=== PATIENT | male | born 1990 | race Caucasian/White ===

== ENCOUNTER 2022-07-17 22:26 | Emergency (ER) | payer BC, SELFPAY ==
[2022-07-17 22:32] VITALS: BP 135/77; PULSE 78; RESP 16; TEMP 36.8; O2SAT 98
--- NOTE | 2022-07-17 23:01 | ED.GENADULT ---
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 He felt sudden pain in his left shoulder and has had pain with any movement of the shoulder since that time. He has not taken anything for pain. He has a history of a shoulder dislocation and what sounds like several subluxations but this felt different. He does not believe he will be able to work tomorrow as he does a lot of overhead work on his job at [employer]. Related Data Home Medications Medication Instructions Recorded Confirmed levothyroxine 150 mcg tablet mcg 07/17/22 Allergies Allergy/AdvReac Type Severity Reaction Status Date / Time No Known Drug Allergies Allergy Verified 07/17/22 22:37 Review of Systems Narrative: Review of systems is outlined above otherwise noted to be negative. PFSH PFS Social History Smoking Status: Current every day smoker What tobacco products do you use: cigarettes Second hand tobacco smoke exposure: No How often do you have a drink containing alcohol: never How often do you have six or more drinks on one occasion: Never AUDIT-C Alcohol total score: 0 Non-prescribed substance use: marijuana (any form) service: No Exam Narrative: Exam Narrative: Vitals noted. Examination is limited to the left upper extremity. He has no tenderness along the clavicle or AC joint. Does have pain with abduction and external rotation actively. Passively I am able to put him through full range of motion with just some pain at the extreme. Good strength and sensation at the elbow and wrist. Full range of motion of the cervical spine without pain. Const: Vital Signs, click to edit/add: Vital Signs - 24 hr 07/17/22 22:32 07/17/22 23:13 Temperature 98.3 F Pulse Rate [Right Pulse Oximeter] 78 80 Respiratory Rate 16 16 Blood Pressure [Ri ght Upper Arm] 135/77 132/72 Pulse Oximetry 98 99 Oxygen Delivery Me thod Room Air Room Air Course Course Hospital Course: Patient was seen and examined. Toradol 60 mg IM is given. I did agree to give him a work note for tomorrow. Vital Signs Vital signs: Initial Vital Signs Temperature 98.3 F 07/17/22 22:32 Temperature Source Temporal Artery Scan 07/17/22 22:32 Pulse Rate 78 07/17/22 22:32 Pulse Rhythm 07/17/22 22:32 Respiratory Rate 16 07/17/22 22:32 Blood Pressure 135/77 07/17/22 22:32 Blood Pressure Mean 96 07/17/22 22:32 Blood Pressure Position Semi-Fowlers 07/17/22 22:32 Pulse Oximetry 98 07/17/22 22:32 Oxygen Delivery Method 07/17/22 22:32 Vital Signs Temperature 98.3 F 07/17/22 22:32 Pulse Rate 78 07/17/22 22:32 Respiratory Rate 16 07/17/22 22:32 Blood Pressure 135/77 07/17/22 22:32 Pulse Oximetry 98 07/17/22 22:32 Oxygen Delivery Method 07/17/22 22:32 Temperature 98.3 F 07/17/22 22:32 Pulse Rate 80 07/17/22 23:13 Respiratory Rate 16 07/17/22 23:13 Blood Pressure 132/72 07/17/22 23:13 Pulse Oximetry 99 07/17/22 23:13 Oxygen Delivery Method 07/17/22 23:13 Discharge Plan Discharge Clinical Impression: Left shoulder strain Patient Disposition: Home, Self-Care Condition: Improved Additional Instructions: Ice, ibuprofen 800 mg 3 times a day, relative rest. Follow-up if worsening or not improving. Prescriptions: No Action levothyroxine 150 mcg tablet Follow Up/Referrals: Jayesh Bowles MD [Primary Care Provider] - Stand Alone Forms: [facility] Info Instructions
[2022-07-17] MEDS: KETOROLAC 30 MG/ML inj 60 MG IM (23:07)
--- OUTSIDE RECORDS SUMMARY | 2022-07-17 23:09 | XMS_ITS | Clinical Summary ---
:1990 Author Organization [facility] [place] [address] Care Team Providers Name Role Phone Jayesh Bowles MD Primary Care Provider [phone] Allergies Active Allergy Reactions Severity Noted Date Comments Methimazole Hives 08/22/2010 Medications Medication Sig Dispensed Refills Start Date End Date Status levothyroxine Take 1 Tablet 90 tablet. 3 11/20/2021 Active (SYNTHROID) 150 mcg (150 mcg) by tabletIndications: mouth once Hypothyroidism following daily. radioiodine therapy Active Problems Problem Noted Date History of Graves' disease 01/08/2019 Overview: Dx 05/2010 History of methimazole treatment Hypothyroidism following radioiodine therapy 5 Resolved Problems Problem Noted Date Resolved Date Graves' disease 07/13/2010 01/08/2019 Hyperthyroidism 05/26/2010 01/08/2019 Immunizations Name Administration Dates Next Due Tdap 12/15/2018 Family History Medical History Relation Name Comments Good Health Father Good Health Mother Good Health Sister Relation Name Status Comments Father Mother Sister Social History Tobacco Use Types Packs/Day Years Used Date Current Every Day Smoker Cigarettes 1.5 Smokeless Tobacco: Never Used Tobacco Cessation: Ready to Quit: No; Co unseling Given: Yes Alcohol Use Standard Drinks/Week Comments No 0 (1 standard drink = 0.6 oz pure alcoho l) Sex Assigned at Date Recorded Not on file Obstetrics History Last Filed Vital Signs Vital Sign Reading Time Taken Comments Blood Pressure 128/70 12/28/2021 10:46 AM CDT Pulse 82 12/28/2021 10:46 AM CDT Temperature 36.7 ??C (98.1 ??F) 02/02/2020 2:34 PM CDT Respiratory Rate 20 12/15/2020 1:56 PM CDT Oxygen Saturation 100% 12/28/2021 10:46 AM CDT Inhaled Oxygen Concentration - - Weight 78.9 kg (174 lb) 12/28/2021 10:46 AM CDT Height 185.4 cm (6' 1) 12/28/2021 10:46 AM CDT Body Mass Index 22.96 12/28/2021 10:46 AM CDT Plan of Treatment Health Maintenance Due Date Last Done Comments COVID-19 vaccine series (#1) 01/01/1993 Pneumococcal series for age 19-64 1998 (1 - PCV) HIV for age 15-65 2007 Hepatitis C screening for age 1107/04/2010 18-79 Influenza for age 9-49 04/26/2022 Depression screening for age 12+ 11/21/2022 11/21/2021, , 02/03/2020, Additional history exists BMI (ht and wt on same day) for 12/28/2022 12/28/2021, 10/25, age 18+ 02/02/2020, Additional history exists Tetanus booster 12/15/2028 12/15/2018 Tdap Completed 12/15/2018 Results Not on filefrom Last 3 Months Insurance Payer Benefit Plan / Subscriber ID Effective Dates Phone Addre ss Type Group [employer] [place] [employer] [id number] 2019-Presen [address] [address] [facility] [place] [address] Care Teams Print Journalist Relationship Specialty Start Date End Date Jayesh Bowles MD PCP - General 05/25/10 [address] [place], [place] [id number]
[2022-07-17 23:13] VITALS: BP 132/72; PULSE 80; RESP 16; O2SAT 99
== END 2022-07-17 23:14 | disposition home or self-care (01) ==
LOC: ED 23:07
PROVIDERS: Emergency Provider Family Medicine; PCP Family Medicine
DX: S46.912A Strain of unspecified muscle, fascia and tendon at shoulder and upper arm level, left arm, initial encounter (principal); X50.0XXA Overexertion from strenuous movement or load, initial encounter; Y93.E9 Activity, other interior property and clothing maintenance; Y92.019 Unspecified place in single-family (private) house as the place of occurrence of the external cause; Y99.8 Other external cause status
CPT/HCPCS: 96372; 99281; 99282; J1885

== ENCOUNTER 2023-03-12 20:05 | Emergency (ER) | payer BC, SELFPAY ==
[2023-03-12 20:17] VITALS: BP 125/76; PULSE 77; RESP 20; TEMP 37.3; O2SAT 100; BMI 22.4
--- NOTE | 2023-03-12 20:17 | ED.ABDPAIN ---
HPI - Abdominal Pain General Time Seen by Provider: 20:17 Date Seen: 03/12/23 Chief Complaint: Abdominal Pain Stated Complaint: L side abdominal pain Time Seen by Provider: 03/12/23 20:08 Source: patient, RN notes reviewed and old records reviewed Mode of arrival: ambulatory History of Present Illness HPI narrative: 32-year-old male who comes in today with abdominal pain. He has noted left upper quadrant abdominal pain since yesterday. Worse with some movements. No chest pain, pain does not get worse with breathing, no shortness of breath. No nausea, vomiting, diarrhea. No change in pain with eating or drinking. No fevers. Took tramadol for this but no other medications. Patient does smoke cigarettes. Related Data Home Medications Medication Instructions Recorded Confirmed levothyroxine 150 mcg tablet mcg 07/17/22 Allergies Allergy/AdvReac Type Severity Reaction Status Date / Time No Known Drug Allergies Allergy Verified 07/17/22 22:37 Review of Systems Status of ROS Reports: 10 or more systems reviewed and unremarkable except as noted in History and below PFSH PFSH Social History Smoking Status: Current every day smoker What tobacco products do you use: cigarettes Smoking packs per day: 1 Smoking cigarettes per day: 20.0 Years smoked: 16 Smoking pack-years: 16.00 Do you use any of these nicotine containing products: None Second hand tobacco smoke exposure: No How often do you have a drink containing alcohol: 2-4 times a month How often do you have six or more drinks on one occasion: Never AUDIT-C Alcohol total score: 2 Non-prescribed substance use: marijuana (any form) service: No Exam Narrative: Exam Narrative: General: Well-developed and well-nourished, no acute distress Head: Atraumatic and normocephalic Eyes: Pupils are equal reactive, extraocular motions intact, conjunctiva clear ENT: External nose and ears are normal, posterior pharynx without erythema or exudate Neck: No midline cervical tenderness, full spontaneous range of motion the neck, trachea midline, no adenopathy Heart: Regular rate and rhythm no murmurs or thrills Lungs: Clear to auscultation bilaterally without wheezes or crackles Abdomen: Soft, left upper quadrant tenderness along the sternal border and also some tenderness of the floating ribs, Carnett positive, nondistended with active bowel sounds Musculoskeletal: No tenderness, deformity, or edema Neurologic: Awake, alert, and oriented x3, no gross focal neurologic deficits, cranial nerves intact as tested Psych: Mood and affect are appropriate Skin: No rashes Const: Vital Signs, click to edit/add: Vital Signs - 24 hr 03/12/23 20:17 03/12/23 21:39 Temperature 99.2 F 98.5 F Pulse Rate [Pulse Oximeter] 77 57 L Respiratory Rate 20 18 Blood Pressure [Ri ght Upper Arm] 125/76 126/82 Pulse Oximetry 100 100 Oxygen Delivery Me thod Room Air Room Air Course Course Hospital Course: Patient seen examined, prior records reviewed. Patient presents with left upper quadrant and lower chest pain which is positional and reproducible, positive Carnett sign. Symptoms are most likely from musculoskeletal or abdominal wall source. Labs ordered to evaluate for other source of pain, Toradol ordered, consider CT scan of the abdomen depending on lab results. Consider D-dimer or CT PE study No pleuritic pain, hypoxia, tachycardia, low risk by Wells criteria and PERC negative. Reevaluation(s) Time of Reevaluation #1: 21:42 Reevaluation #1: Labs independently interpreted by me with reassuring CBC, normal basic metabolic panel, normal hepatic, normal lipase. Urinalysis is negative. Based on exam and lab testing today, symptoms are most likely from musculoskeletal pain. Patient did take Tylenol or ibuprofen for this. Vital Signs Vital signs: Initial Vital Signs Temperature 99.2 F 03/12/23 20:17 Temperature Source Temporal Artery Scan 03/12/23 20:17 Pulse Rate 77 03/12/23 20:17 Pulse Rhythm Regular 03/12/23 20:17 Respiratory Rate 20 03/12/23 20:17 Blood Pressure 125/76 03/12/23 20:17 Blood Pressure Mean 92 03/12/23 20:17 Blood Pressure Position Supine 03/12/23 20:17 Pulse Oximetry 100 03/12/23 20:17 Oxygen Delivery Method Room Air 03/12/23 20:17 Vital Signs Temperature 99.2 F 03/12/23 20:17 Pulse Rate 77 03/12/23 20:17 Respiratory Rate 20 03/12/23 20:17 Blood Pressure 125/76 03/12/23 20:17 Pulse Oximetry 100 03/12/23 20:17 Oxygen Delivery Method Room Air 03/12/23 20:17 Temperature 98.5 F 03/12/23 21:39 Pulse Rate 57 L 03/12/23 21:39 Respiratory Rate 18 03/12/23 21:39 Blood Pressure 126/82 03/12/23 21:39 Pulse Oximetry 100 03/12/23 21:39 Oxygen Delivery Method Room Air 03/12/23 21:39 MDM - Abdominal Pain Lab Data Labs: Lab Results 03/12/23 03/12/23 Range/Units 20:35 20:50 WBC 8.37 (4.50-11.00) K/uL RBC 5.35 (4.30-5.90) m/uL Hgb 15.8 (13.5-17.5) gm/dL Hct 46.8 (37.0-53.0) % MCV 88 (80-100) fL MCH 30 (26-34) pg MCHC 34 (32-36) gm/dL RDW Coeff of Vasquez 13.6 (11.5-15.5) % Plt Count 234 (140-440) K/uL Neut % (Auto) 74.3 H (42.0-72.0) % Lymph % (Auto) 16.8 L (20-44) % [place] % (Auto) 7.6 (0.0-11.0) % Eos % (Auto) 1.1 (0.0-7.0) % Baso % (Auto) 0.1 (0.0-3.0) % Neut # (Auto) 6.20 (1.7-7.0) K/uL Lymph # (Auto) 1.40 (0.90-2.90) K/uL [place] # (Auto) 0.60 (0.00-0.90) K/UL Eos # (Auto) 0.09 (0.00-0.50) K/uL Baso # (Auto) 0.01 (0.00-0.30) K/uL Abs Immat Gran (auto) 0.01 (0.00-0.30) K/uL Imm/Tot Granulo (auto) 0.1 % Sodium 139 (135-149) mmol/L Potassium 3.4 L (3.6-5.1) mmol/L Chloride 103 (96-114) mmol/L Carbon Dioxide 27 (20-32) mmol/L BUN 9 (5-24) mg/dL Creatinine 1.2 (0.5-1.5) mg/dL Estimated Creat Clear 98.17 Estimated GFR 83 ml/min Glucose 97 (60-115) mg/dL Calcium 9.1 (8.4-10.6) mg/dL Total Bilirubin 0.7 (0.1-1.5) mg/dL Direct Bilirubin 0.1 (0.0-0.5) mg/dL AST 31 (12-35) U/L ALT 24 (4-50) U/L Alkaline Phosphatase 43 (40-150) U/L Total Protein 7.5 (6.0-8.3) g/dL Albumin 4.9 (3.3-5.0) g/dL Lipase 56 (23-300) U/L Urine Color Yellow (Yellow) Urine Appearance Clear (Clear) Urine pH 6.0 (5.0-8.5) Ur Specific [place] <= 1.005 (1.000-1.030) Urine Protein Negative (Negative) Urine Glucose (UA) Negative (Negative) Urine Ketones Negative (Negative) Urine Blood Negative (Negative) Urine Nitrite Negative (Negative) Urine Bilirubin Negative (Negative) Urine Urobilinogen 0.2 (0.2-1.0) Ur Leukocyte Esterase Negative (Negative) Discharge Plan Discharge Clinical Impression: Abdominal wall pain Patient Disposition: Home w/ Parent or Adult Condition: Stable Instructions: Abdominal Pain (ED) Additional Instructions: Tylenol or ibuprofen as needed. Activity as tolerated. Diet as desired. Activity Level: Activity as Tolerated Prescriptions: No Action levothyroxine 150 mcg tablet Follow Up/Referrals: Jayesh Bowles MD [Primary Care Provider] - Stand Alone Forms: [employer] Info Instructions
[2023-03-12] MEDS: 0.9 % SODIUM CHLORIDE 1000 ml 1,000 ML IV (20:43)
[2023-03-12] MEDS: KETOROLAC 15 MG/ML inj IVP (20:45)
[2023-03-12 20:47] LABS: Basophils Absolute Auto 0.01 K/uL (0.00-0.30); Basophils Percent Auto 0.1 % (0.0-3.0); Eosinophils Absolute Auto 0.09 K/uL (0.00-0.50); Eosinophils Percent Auto 1.1 % (0.0-7.0); Hematocrit 46.8 % (37.0-53.0); Hemoglobin* 15.8 gm/dL (13.5-17.5); Immature Granulocytes Abs Auto 0.01 K/uL (0.00-0.30); Immature Granulocytes Pct Auto 0.1 %; Lymphocytes Percent Auto 16.8 % (20-44); Mean Corpuscular HGB Conc 34 gm/dL (32-36); Mean Corpuscular Hemoglobin 30 pg (26-34); Mean Corpuscular Volume 88 fL (80-100); Monocytes Percent Auto 7.6 % (0.0-11.0); Neutrophils Percent Auto 74.3 % (42.0-72.0); Platelet Count* 234 K/uL (140-440); RDW Coefficient of Variation % 13.6 % (11.5-15.5); Red Blood Count 5.35 m/uL (4.30-5.90); White Blood Count* 8.37 K/uL (4.50-11.00)
[2023-03-12 20:51] LABS: Slide Review Reflex No
[2023-03-12 20:57] LABS: Albumin* 4.9 g/dL (3.3-5.0); Chloride* 103 mmol/L (96-114); Sodium* 139 mmol/L (135-149)
[2023-03-12 20:58] LABS: Potassium* 3.4 mmol/L (3.6-5.1)
[2023-03-12 21:00] LABS: Alkaline Phosphatase* 43 U/L (40-150); Aspartate Amino Transferase* 31 U/L (12-35); Bilirubin Direct* 0.1 mg/dL (0.0-0.5); Bilirubin Total* 0.7 mg/dL (0.1-1.5); Blood Urea Nitrogen* 9 mg/dL (5-24); Calcium* 9.1 mg/dL (8.4-10.6); Carbon Dioxide* 27 mmol/L (20-32); Creatinine* 1.2 mg/dL (0.5-1.5); Est. Creatinine Clearance* 98.17; Estimated Glomerular Filt Rate 83 ml/min; Glucose* 97 mg/dL (60-115); Total Protein* 7.5 g/dL (6.0-8.3)
[2023-03-12 21:01] LABS: Alanine Aminotransferase* 24 U/L (4-50); Lipase* 56 U/L (23-300)
[2023-03-12 21:26] LABS: Appearance Urine Clear (Clear); Bilirubin Urine Negative (Negative); Blood Urine Negative (Negative); Color Urine Yellow (Yellow); Glucose Urine Negative (Negative); Ketones Urine Negative (Negative); Leukocyte Esterase Urine Negative (Negative); Nitrite Urine Negative (Negative); Protein Urine Negative (Negative); Specific Gravity Urine <= 1.005 (1.000-1.030); Urobilinogen Urine 0.2 (0.2-1.0)
[2023-03-12 21:39] VITALS: BP 126/82; PULSE 57; RESP 18; TEMP 36.9; O2SAT 100
[2023-03-12 21:47] LABS: RBC Urine 0-2 (0-2); WBC Urine 0-2 (0-5)
== END 2023-03-12 21:52 | disposition home or self-care (01) ==
PROVIDERS: Emergency Provider Family Medicine; PCP Family Medicine
DX: R10.12 Left upper quadrant pain (principal)
CPT/HCPCS: 36415; 80048; 80076; 81001; 83690; 85025; 96374; 99283; 99284; J1885; J7030

== ENCOUNTER 2023-09-13 10:04 | Emergency (ER) | payer OTHER, SELFPAY ==
[2023-09-13 10:12] VITALS: BMI 21.7
--- NOTE | 2023-09-13 10:19 | PC.NURSE ---
call center team leader with poison control pharmacist, keep rinsing bilateral eyes until pH is 7.0, look for corneal abrasions and treat with ointment(s) if needed. Vision may still be a bit blurry but if all else checks out pt can go home.
--- NOTE | 2023-09-13 10:24 | PC.NURSE ---
right eye pH 8, left eye pH 7. continue rinsing at eyewash station.
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
--- NOTE | 2023-09-13 10:54 | PC.NURSE ---
Pt last tetanus 12/15/2018
--- NOTE | 2023-09-13 10:54 | PC.NURSE ---
to radiology via cart
[2023-09-13] MEDS: TETRACAINE 0.5% OPHTH 2 DROP EYE-BOTH (10:55)
--- OUTSIDE RECORDS SUMMARY | 2023-09-13 10:57 | XMS_ITS | Clinical Summary ---
Author Name Unknown Organization [facility] Address [place], [place] [address] Care Team Providers Care Chief Medical Technologist Name Role Phone Radha Briggs DO Primary Care Provider [phone] Allergies Active Allergy Reactions Criticality Noted Date Comments Methimazole Hives 08/22/2010 Medications Medication Sig Dispensed Refills Start Date End Date Status levothyroxine (SYNTHROID) 150 mcg tabletIndications:Hypo thyroidism following radioiodine therapy Take 1 Tablet (150 mcg) by mouth once daily. 90 Tablet 3 03/28/2023 Active Active Problems Problem Noted Date Diagnosed Date History of Graves' disease 01/08/2019 Overview: Dx 05/2010 History of methimazole treatment Hypothyroidism following radioiodine therapy Last Assessment & Plan: Diagnosed with graves. Had radioiodine therapy. Immunizations Name Administration Dates Next Due Tdap 12/15/2018 Family History Medical History Relation Name Comments Good Health Father Good Health Mother Good Health Sister Relation Name Status Comments Father Mother Sister Social History Tobacco Use Types Packs/Day Years Used Date Smoking Tobacco: Every Day Cigarettes Smokeless Tobacco: Never Tobacco Cessation:Ready to Q uit: No; Counseling Given: Yes Alcohol Use Standard Drinks/Week Comments No 0 (1 standard drink = 0.6 oz pur e alcohol) PHQ-2 Answer Date Recorded PHQ-2 TOTAL SCORE 0 03/28/2023 Social Connections Answer Date Recorded Frequency of Communication with Friends and Fami ly Not on file 01/07/2023 Financial Resource Strain Answer Date R ecorded Difficulty of Paying Living Expenses 3 12/28/2021 Difficulty of Paying Living Expenses Not on file 12/28/2021 Food Insecurity Answer Date Recorded Worried About Running Out of Food in the Last Ye ar 1 12/28/2021 Transportation Needs Answer Date Record ed Lack of Transportation (Medical) 1 12/28/2021 Housing Stability Answer Date Recorded Unable to Pay for Housing in the Last Year 1 12/28/2021 Sex and Gender Information Value Date Recorded Sex Assigned at Not on file Gender Identity Not on file Sexual Orientation Not on file Obstetrics History Last Filed Vital Signs Vital Sign Reading Time Taken Comments Blood Pressure 113/67 03/28/2023 4:06 PM CDT Pulse 80 03/28/2023 4:06 PM CDT Temperature 36.7 ??C (98.1 ??F) 02/02/2020 2:34 PM CD T Respiratory Rate 20 12/15/2020 1:56 PM CDT Oxygen Saturation 98% 03/28/2023 4:06 PM CDT Inhaled Oxygen Concentration - - Weight 69.2 kg (152 lb 9.6 oz) 03/28/2023 4:06 P M CDT Height 185.4 cm (6' 1) 03/28/2023 4:06 PM CDT Body Mass Index 20.13 03/28/2023 4:06 PM CDT Plan of Treatment Health Maintenance Due Date Last Done Comments COVID-19 vaccine series (#1) 01/01/1993 Pneumococcal series for age 6-64 (1 of 2 - PCV) 1998 HIV for age 15-65 2007 Hepatitis C screening for ag e 18-79 2010 Influenza for age 9-49 04/26/2023 BMI (ht and wt on same day) for age 18+ 03/28/2024 03/28/2023, 12/28/2021, 11/20/2021, Additional history exists Depression screening for age 12+ 03/28/2024 03/28/2023, 11/21/2021, 11/20/2021, Additional history exists Tetanus booster 12/15/2028 12/15/2018 Tdap Completed 12/15/2018 Care Teams Chief Medical Technologist Relationship Specialty Start Date End Date Radha Briggs DO [address] [place] [id number] PCP - General Family Practice 12/12/22
[2023-09-13] MEDS: KETOROLAC 30 MG/ML inj IM (11:05)
== END 2023-09-13 11:35 | disposition other institution (70) ==
PROVIDERS: Emergency Provider Family Medicine
DX: T26.12XA Burn of cornea and conjunctival sac, left eye, initial encounter (principal); T26.11XA Burn of cornea and conjunctival sac, right eye, initial encounter; T54.2X1A Toxic effect of corrosive acids and acid-like substances, accidental (unintentional), initial encounter
CPT/HCPCS: 96372; 99283; A9270; J1885

== ENCOUNTER 2024-03-21 16:31 | Emergency (ER) | payer BC, SELFPAY ==
[2024-03-21 16:36] VITALS: BP 121/75; PULSE 78; RESP 18; TEMP 36.6; O2SAT 98; BMI 21.1
--- NOTE | 2024-03-21 16:54 | ED_ITS ---
HPI - General Adult General Chief complaint: Ear/Nose/Throat Problem Stated complaint: difficulty hearing from R ear Time Seen by Provider: 03/21/24 16:48 History of Present Illness HPI narrative: reports that he went swimming at a hotel pool yesterday afternoon. felt that he had water in his ear. used an OTC swimmers' ear drops of no avail. hearing has been diminished and feels that something is blocking it in his right ear. 33-year-old man presenting to the emergency department with complaint of right ear discomfort. Feels that hearing is suppressed and something is ?blocking? in his right ear. Apparently was swimming with his family in hotel pool yesterday. Streetman like had some water in his ear any use swimmer's drops below this unable to get relief. Exam prompts me to ask whether or not he uses Q-tips and he says yes. He also smokes. Does not feel congested over having any trouble with sinuses otherwise. No fever. No spontaneous drainage. Related Data Home Medications ?Medication ?Instructions ?Recorded ?Confirmed levothyroxine 150 mcg tablet mcg 07/17/22 Previous Rx's ?Medication ?Instructions ?Recorded prednisolone acetate 1 % eye 1 drp ophthalmic (eye) QID #10 mL 09/13/23 drops,suspension Allergies Allergy/AdvReac Type Severity Reaction Status Date / Time No Known Drug Allergies Allergy Verified 03/21/24 16:36 Review of Systems Status of ROS: Reports: 6 or more systems reviewed and unremarkable except as noted in History and below [facility] Social History Smoking Status: Current every day smoker What tobacco products do you use: cigarettes Smoking packs per day: 1 Smoking cigarettes per day: 20.0 Years smoked: 16 Smoking pack-years: 16.00 Do you use any of these nicotine containing products: None Second hand tobacco smoke exposure: No How often do you have a drink containing alcohol: 2-4 times a month How often do you have six or more drinks on one occasion: Never AUDIT-C Alcohol total score: 2 Non-prescribed substance use: marijuana (any form) service: No Exam Narrative: Exam Narrative: Pleasant. NAD. Does sound just a little congested in the nasopharynx. No fa cial swelling erythema tenderness. Smell slightly of cigarette smoke. Neck is supple without lymphadenopathy. There is not excessive soreness to palpation of pinna or tragus. There is excessive cerumen bilaterally but particularly the right ear. Const: Vital Signs, click to edit/add: Vital Signs - 24 hr 03/21/24 16:36 Temperature 98 F Pulse Rate [Pulse Oximeter] 78 Respiratory Rate 18 Blood Pressure [Le ft Upper Arm] 121/75 Pulse Oximetry 98 Oxygen Delivery Me thod Room Air Documenting provider has reviewed patient's vital signs: yes Course Vital Signs Vital signs: Initial Vital Signs Temperature 98 F 03/21/24 16:36 Temperature Source Temporal Artery Scan 03/21/24 16:36 Pulse Rate 78 03/21/24 16:36 Pulse Rhythm Regular 03/21/24 16:36 Respiratory Rate 18 03/21/24 16:36 Blood Pressure 121/75 03/21/24 16:36 Blood Pressure Mean 90 03/21/24 16:36 Blood Pressure Position Supine 03/21/24 16:36 Pulse Oximetry 98 03/21/24 16:36 Oxygen Delivery Method Room Air 03/21/24 16:36 Vital Signs Temperature 98 F 03/21/24 16:36 Pulse Rate 78 03/21/24 16:36 Respiratory Rate 18 03/21/24 16:36 Blood Pressure 121/75 03/21/24 16:36 Pulse Oximetry 98 03/21/24 16:36 Oxygen Delivery Method Room Air 03/21/24 16:36 Temperature 98 F 03/21/24 16:36 Pulse Rate 78 03/21/24 16:36 Respiratory Rate 18 03/21/24 16:36 Blood Pressure 121/75 03/21/24 16:36 Pulse Oximetry 98 03/21/24 16:36 Oxygen Delivery Method Room Air 03/21/24 16:36 Medical Decision Making MDM Narrative Medical decision making narrative: Discussed options for clearing the ears. First I would clear this cerumen and then reassess his sense of his hearing feeling blocked. Decided to proceed with ear curette but this was clearly too sensitive Removed to ear irrigation with nursing assistance. On reassessment is essentially completely clear of cerumen. There is mild inflammation of the right ear canal but not with significant edema. He feels cleared without that sense of blockage as noted. Did offer oral steroid drops but he has some concern about potential allergy and so think it is fine to leave as is. See patient discharge plan for further discussion Medical Records Medical records reviewed: Yes I reviewed the patient's medical records Discharge Plan Discharge Clinical Impression: Cerumen impaction, Otitis externa Patient Disposition: Home, Self-Care Condition: Improved Additional Instructions: You might yet try application of those swimmer's ear drops to continue with drying. I appreciate that you would prefer not to have steroid containing drops given uncertain allergy. Watch for increasing and persistent pain, purulent drainage, fever. Try to avoid generally use of Q-tips particularly in the setting of smoking. Both damage the natural cleaning ability of the ear. Course if you can quit smoking, that would be good. Consider use of Debrox ear cleaning drops or similar maybe 4 times a year as alternative to Q-tips. Prescriptions: No Action levothyroxine 150 mcg tablet prednisolone acetate 1 % drops,suspension 1 drp ophthalmic (eye) QID Qty: 10 [address] Rx [address]ructions: Place one drop 3-4x daily in both eyes for 5-7 days. Follow Up/Referrals: Provider,Not a Local [Primary Care Provider] - Stand Alone Forms: [employer] Info Instructions
--- OUTSIDE RECORDS SUMMARY | 2024-03-21 17:28 | XMS_ITS | Clinical Summary ---
Author Organization [employer] [facility] s & [facility] Address [place], [place] [address] Care Team Providers Care Qa Automation Developer Name Role Phone Radha Briggs DO Primary Care Provider [phone] Allergies Active Allergy Reactions Criticality Noted Date Comments Methimazole Hives 08/22/2010 Medications Medication Sig Dispensed Refills Start Date End Date Status levothyroxine (SYNTHROID) 150 mcg tabletIndications:Hypo thyroidism following radioiodine therapy Take 1 Tablet (150 mcg) by mouth once daily. 90 Tablet 3 10/29/2023 Active Active Problems Problem Noted Date Diagnosed [...] Answer Date Recorded PHQ-2 TOTAL SCORE 0 10/29/2023 Social Connections Answer Date Recorded Frequency of [...] Sign Reading Time Taken Comments Blood Pressure 119/73 10/29/2023 2:29 PM PLANT TAXONOMY TEACHER Pulse 90 10/29/2023 2:29 PM PLANT TAXONOMY TEACHER Temperature 36.7 ??C (98.1 ??F) 02/02/2020 2:34 PM CD T Respiratory Rate 20 12/15/2020 1:56 PM CDT Oxygen Saturation 97% 10/29/2023 2:29 PM PLANT TAXONOMY TEACHER Inhaled Oxygen Concentration - - Weight 73.8 kg (162 lb 9.6 oz) 10/29/2023 2:29 P M PLANT TAXONOMY TEACHER Height 185.4 cm (6' 1) 10/29/2023 2:29 PM PLANT TAXONOMY TEACHER Body Mass Index 21.45 10/29/2023 2:29 PM PLANT TAXONOMY TEACHER Plan of Treatment Health Maintenance Due Date Last Done Comments Pneumococcal series for age 6-64 (1 of 2 - PCV) 1998 COVID-19 vaccine series ( season) 2023 Influenza for age 9-49 04/26/2024 BMI (ht and wt on same day) for age 18+ 10/28/2024 10/29/2023, 03/28/2023, 12/28/2021, Additional history exists Depression screening for age 12+ 10/28/2024 10/29/2023, 03/28/2023, 11/21/2021, Additional history exists Tetanus booster 12/15/2028 12/15/2018 Tdap Completed 12/15/2018 HIV for age 15-65 Completed 10/29/2023 Hepatitis C screening for ag e 18-79 Completed 10/29/2023 Procedures Procedure Name Priority Date/Time Associated Diagnosis Comments ANTI HIV 1/2 Routine 10/29/2023 2:50 PM PLANT TAXONOMY TEACHER Screening for HIV (human immunodeficiency virus) ANTI HCV Routine 10/29/2023 2:50 PM PLANT TAXONOMY TEACHER Need for hepatitis C screening test from Last 3 Months or Most Recently Relevant to Health Maintenance Results * ANTI HCV (10/29/2023 2:50 PM PLANT TAXONOMY TEACHER) HEPATITIS C ANTIBODY Non-Reacti ve Non-React jayson 10/29/2023 10:46 PM PLANT TAXONOMY TEACHER [facility] Comment:Please note, per www .CDC.gov: If a patient is known to be at high risk of HCV infection, or is symptomatic, and the physician's suspicion of HCV infection is high, HCV RNA testing is often employed and is of diagnostic value, even after an initial negative anti-HCV test result. Blood BLOOD SPECIMEN / Unknown Venipuncture / Unknown 10/29/2023 2:50 PM PLANT TAXONOMY TEACHER 10/29/2023 2:50 PM PLANT TAXONOMY TEACHER Radha Briggs DO SEND OUTS Performing Organization Address City/[facility]/ZIP Co de Phone Number [facility] [address] [place] [address], * ANTI HIV 1/2 [24033.0] (10/29/2023 2:50 PM PLANT TAXONOMY TEACHER) Pathologist [facility] HIV-1/HIV-2 SCREEN Non-Reacti ve Non-Reacti ve 10/29/2023 10:47 PM PLANT TAXONOMY TEACHER [facility] Comment:HIV-1 p24 and HIV-1/ HIV-2 Ab Not Detected. Blood BLOOD SPECIMEN / Unknown Venipuncture / Unknown 10/29/2023 2:50 PM PLANT TAXONOMY TEACHER 10/29/2023 2:50 PM PLANT TAXONOMY TEACHER Radha Briggs DO SEND OUTS [facility] [address] [place] [address], [place] from Last 3 Months or Most Recently Relevant to Health Maintenance Care Teams Qa Automation Developer Relationship Specialty Start Date End Date Radha Briggs DO [address] [place], [place] [id number] PCP - General Family Practice 12/12/22
== END 2024-03-21 17:36 | disposition home or self-care (01) ==
PROVIDERS: Emergency Provider Family Medicine
DX: H61.21 Impacted cerumen, right ear (principal); H60.91 Unspecified otitis externa, right ear
CPT/HCPCS: 69209; 99283; 99284

== ENCOUNTER 2024-10-01 19:20 | Emergency (ER) | payer BC, SELFPAY ==
--- OUTSIDE RECORDS SUMMARY | 2024-10-01 19:23 | XMS_ITS | Clinical Summary ---
Author Organization [facility] s & [facility] Address [place], [place] [address] Care Team Providers Care Hand Wood Sander Name Role Phone Radha Briggs DO Primary Care Provider [phone] Allergies Active Allergy Reactions Criticality Noted Date Comments Methimazole Hives 08/22/2010 Medications levothyroxine (SYNTHROID) 150 mcg tabletIndication s:Hypothyroidism following radioiodine therapy Take 1 Tablet (150 mcg) by mouth once daily. 90 Tablet 3 5 Active levothyroxine (SYNTHROID) 150 mcg tabletIndication s:Hypothyroidism following radioiodine therapy Take 1 Tablet (150 mcg) by mouth once daily. 90 Tablet 3 4 09/29/19 25 Discontinu ed(Reorder (E-cancel not sent)) Active Problems Problem Noted Date Diagnosed Date History of Graves' disease 01/08/2019 Overview (01/08/2019): Dx 05/2010 History of methimazole treatment Hypothyroidism following radioiodine therapy Assessment & Plan (03/28/2023 4:05 PM CDT): Diagnosed with graves. Had radioiodine therapy. Encounters Date Type Department Care Team Description 09/29/2024 3:45 PM PLANT SAFETY LEADER Office Visit [facility] [address] [place] [address] Radha Briggs DO Medication Management (Levothyroxine ) 09/29/2024 Travel from Last 3 Months Immunizations Name Administration Dates Next Due Tdap 12/15/2018 Family History Medical History Relation Name Comments Good Health Father Good Health Mother Good Health Sister Relation Name Status Comments Father Mother Sister Social History Tobacco Use Types Packs/Day Years Used Date Smoking Tobacco: Former Cigarettes 1.5 14.6 2 010 - 03/26/2024 Smokeless Tobacco: Never Tobacco Cessation:Counseling Given: Yes Alcohol Use Standard Drinks/Week Comments No 0 (1 standard drink = 0.6 oz pur e alcohol) PHQ-2 Answer Date Recorded PHQ-2 TOTAL SCORE 0 10/29/2023 Social Connections Answer Date Recorded Frequency of Communication with Friends and Fami ly 0 12/28/2021 Financial Resource Strain Answer Date R ecorded [...] Recorded Sex Assigned at Not on file Legal Sex Male 5:26 AM PLANT SAFETY LEADER Gender Identity Not on file Sexual Orientation Not on file Obstetrics History Last Filed Vital Signs Vital Sign Reading Time Taken Comments Blood Pressure 131/76 09/29/2024 3:40 PM PLANT SAFETY LEADER Pulse 62 09/29/2024 3:40 PM PLANT SAFETY LEADER Temperature 36.7 C (98.1 F) 02/02/2020 2:34 PM CDT Respiratory Rate 20 12/15/2020 1:56 PM CDT Oxygen Saturation 100% 09/29/2024 3:40 PM PLANT SAFETY LEADER Inhaled Oxygen Concentration - - Weight 81.7 kg (180 lb 1.6 oz) 09/29/2024 3:40 P M PLANT SAFETY LEADER Height 185.4 cm (6' 1) 10/29/2023 2:29 PM PLANT SAFETY LEADER Body Mass Index 23.76 10/29/2023 2:29 PM PLANT SAFETY LEADER Plan of Treatment Upcoming Encounters Date Type Department Care Team (Late st Contact Info) Description 12/29/2024 3:45 PM CDT Orders Only [facility] [address] [place] [address] Lab, [place] Health Maintenance Due Date Last Done Comments COVID-19 vaccine series (2023- season) 2024 Influenza for age 9-49 04/26/2024 BMI (ht and wt on same day) for age 18+ 10/28/2024 10/29/2023, 03/28/2023, 12/28/2021, Additional history exists Depression screening for age 12+ 10/28/2024 10/29/2023, 03/28/2023, 11/21/2021, Additional history exists Tetanus booster 12/15/2028 12/15/2018 Tdap Completed 12/15/2018 HIV for age 15-65 Completed 10/29/2023 Hepatitis C screening for age 18-79 Completed 10/29/2023 Pneumococcal series for age 6-49 Aged Out No longer eligible based on patient's age to complete this topic Procedures Procedure Name Priority Date/Time Associated Diagnosis Comments CBC WITH AUTO DIFFERENTIAL Routine 09/29/2024 3:52 PM PLANT SAFETY LEADER Hypothyroidism following radioiodine therapy TSH Routine 09/29/2024 3:52 PM PLANT SAFETY LEADER Hypothyroidism following radioiodine therapy BASIC METABOLIC PANEL Routine 09/29/2024 3:52 PM PLANT SAFETY LEADER Hypothyroidism following radioiodine therapy ANTI HIV 1/2 Routine 10/29/2023 2:50 PM PLANT SAFETY LEADER Screening for HIV (human immunodeficiency virus) ANTI HCV Routine 10/29/2023 2:50 PM PLANT SAFETY LEADER Need for hepatitis C screening test from Last 3 Months or Most Recently Relevant to Health Maintenance Results * (ABNORMAL) TSH (09/29/2024 3:52 PM PLANT SAFETY LEADER) TSH 8.07(H) 0.40 - 4.50 mIU/L [facility] Blood BLOOD SPECIMEN / Unknown 09/29/2024 3:52 PM PLANT SAFETY LEADER 09/29/2024 3:53 PM PLANT SAFETY LEADER us Adei Shaqra DO CHEMISTRY Final Result [employer] [facility] [address] [place] [address], [facility] [address] [place] [address] * CBC AND DIFFERENTIAL (09/29/2024 3:52 PM PLANT SAFETY LEADER) Pathologist [facility] WHITE BLOOD CELL COUNT 6.9 3.8 - 10.8 Thousand/u L [facility] RED BLOOD CELL COUNT 5.23 4.20 - 5.80 Million/uL [email or web address] HEMOGLOBIN 15.6 13.2 - 17.1 g/dL [facility] HEMATOCRIT 46.6 38.5 - 50.0 % [facility] MCV 89.1 80.0 - 100.0 fL [email or web address] MCH 29.8 27.0 - 33.0 pg [facility] MCHC 33.5 32.0 - 36.0 g/dL [facility] Comment: For adults, a slight decrease in the calculated MCHC value (in the range of 30 to 32 g/dL) is most likely not clinically significant; however, it should be interpreted with caution in correlation with other red cell parameters and the patient's clinical condition. RDW 13.5 11.0 - 15.0 % [facility] PLATELET COUNT 277 140 - 400 Thousand/u L [email or web address] MPV 10.6 7.5 - 12.5 fL [facility] ABSOLUTE NEUTROPHILS 3,995 1,500 - 7,800 cells/uL [facility] ABSOLUTE LYMPHOCYTES 1,884 850 - 3,900 cells/uL [facility] ABSOLUTE MONOCYTES 628 200 - 950 cells/uL [facility] ABSOLUTE EOSINOPHILS 352 15 - 500 cells/uL [facility] ABSOLUTE BASOPHILS 41 0 - 200 cells/uL [facility] NEUTROPHILS 57.9 % [facility] LYMPHOCYTES 27.3 % [facility] MONOCYTES 9.1 % [facility] EOSINOPHILS 5.1 % [facility] BASOPHILS 0.6 % [facility] Blood BLOOD SPECIMEN / Unknown 09/29/2024 3:52 PM PLANT SAFETY LEADER 09/29/2024 3:53 PM PLANT SAFETY LEADER us Adei Bobyqra DO HEMATOLOGY Final Result Performing Organization Address [facility]/ZIP Co de Phone Number [employer] [facility] [address] [place] [address], [place] [phone] [email or web address] [address] [place] [address] * BASIC METABOLIC PANEL (09/29/2024 3:52 PM PLANT SAFETY LEADER) [facility] GLUCOSE 95 65 - 99 mg/dL [facility] Comment: Fasting reference interval UREA NITROGEN (BUN) 10 7 - 25 mg/dL [facility] CREATININE 1.13 0.60 - 1.26 mg/dL [facility] EGFR 89 > OR = 60 mL/min/1. 73m2 [facility] BUN/CREATININE RATIO SEE NOTE: 6 - 22 (calc) [facility] Comment: Not Reported: BUN and Creatinine are within reference range. SODIUM 140 135 - 146 mmol/L [facility] POTASSIUM 4.6 3.5 - 5.3 mmol/L [facility] CHLORIDE 103 98 - 110 mmol/L [facility] CARBON DIOXIDE 28 20 - 32 mmol/L [facility] ELECTROLYTE BALANCE 9 7 - 17 mmol/L (calc) [facility] CALCIUM 9.6 8.6 - 10.3 mg/dL [facility] Blood BLOOD SPECIMEN / Unknown 09/29/2024 3:52 PM PLANT SAFETY LEADER 09/29/2024 3:53 PM PLANT SAFETY LEADER us Adei Shaqra DO CHEMISTRY Final Result Performing Organization Address [facility]/ZIP Co de Phone Number [employer] [facility] [address] [place] [address], [place] [phone] [email or web address] [facility] [address] [place] [address] * ANTI HCV (10/29/2023 2:50 PM PLANT SAFETY LEADER) [facility] HEPATITIS C ANTIBODY Non-Reacti ve Non-React jayson 10/29/2023 10:46 PM PLANT SAFETY LEADER [facility] Comment:Please note, per www .CDC.gov: If a patient is known to be at high risk of HCV infection, or is symptomatic, and the physician's suspicion of HCV infection is high, HCV RNA testing is often employed and is of diagnostic value, even after an initial negative anti-HCV test result. Blood BLOOD SPECIMEN / Unknown Venipuncture / Unknown 10/29/2023 2:50 PM PLANT SAFETY LEADER 10/29/2023 2:50 PM PLANT SAFETY LEADER [employer] DO SEND OUTS Final Result Performing Organization Address [facility]/ZIP Co de Phone Number [facility] [address] [place] [address], * ANTI HIV 1/2 [06933.0] (10/29/2023 2:50 PM PLANT SAFETY LEADER) [facility] HIV-1/HIV-2 SCREEN Non-Reacti ve Non-Reacti ve 10/29/2023 10:47 PM PLANT SAFETY LEADER [facility] Comment:HIV-1 p24 and HIV-1/ HIV-2 Ab Not Detected. Blood BLOOD SPECIMEN / Unknown Venipuncture / Unknown 10/29/2023 2:50 PM PLANT SAFETY LEADER 10/29/2023 2:50 PM PLANT SAFETY LEADER [employer] DO SEND OUTS Final Result Performing Organization Address City/[facility]/ZIP Co de Phone Number [facility] [address] [place] [address], from Last 3 Months or Most Recently Relevant to Health Maintenance Insurance [employer] [facility] [place] Care Teams Hand Wood Sander Relationship Specialty Start Date End Date Radha Briggs DO [address] [place] [address] PCP - General Family Practice 12/12/22
[2024-10-01 19:31] VITALS: BP 108/80; RESP 22; TEMP 37.2; O2SAT 99; BMI 28.2
--- NOTE | 2024-10-01 19:52 | ED.GENADULT ---
HPI - General Adult General Date Seen: 10/01/24 Chief complaint: Nausea/Vomiting Stated complaint: weakness, vomiting, poss food poison Time Seen by Provider: 10/01/24 19:31 History of Present Illness HPI narrative: Patient is a 34-year-old male here with his for evaluation of nausea and chills. History is provided by his as he is hyperventilating and says he is not able to provide history. She says that he had not been feeling well for a day or 2, had been a little achy and fatigued. He had a subway sandwich that was ordered last night, he did not finish it so he reheated at today and ate it. After that he felt nauseated and chilled. She says that she gave him some ibuprofen, did not note a fever at home, says his temp was 99?. She says that he just did not seem to be getting better, was breathing rapidly and complaining of feeling ill so she brought him in for evaluation. She notes that his thyroid was checked recently and there were told his thyroid levels were low and he should come back in 3 months to be rechecked. She would like that to be reassessed today. He denies abdominal pain, chest pain, shortness of breath. No vomiting at home, no diarrhea. He does smoke, no significant alcohol use. No significant medical history. Related Data Home Medications ?Medication ?Instructions ?Recorded ?Confirmed levothyroxine 150 mcg tablet mcg 07/17/22 Previous Rx's ?Medication ?Instructions ?Recorded prednisolone acetate 1 % eye 1 drp ophthalmic (eye) QID #10 mL 09/13/23 drops,suspension Allergies Allergy/AdvReac Type Severity Reaction Status Date / Time No Known Drug Allergies Allergy Verified 10/01/24 19:34 Review of Systems Status of ROS: Reports: 6 or more systems reviewed and unremarkable except as noted in History and below [facility] Social History Smoking Status: Current every day smoker What tobacco products do you use: cigarettes Smoking packs per day: 1 Smoking cigarettes per day: 20.0 Years smoked: 16 Smoking pack-years: 16.00 Do you use any of these nicotine containing products: None Second hand tobacco smoke exposure: No How often do you have a drink containing alcohol: 2-4 times a month How often do you have six or more drinks on one occasion: Never AUDIT-C Alcohol total score: 2 Non-prescribed substance use: marijuana (any form) service: No Exam Narrative: Exam Narrative: Vital signs reviewed In general, alert, nontoxic male, hyperventilating. Head: Normocephalic, atraumatic. Eyes: Sclera clear. Pupils equal and reactive. ENT: Mucous membranes moist. Neck: Supple without adenopathy. Heart: Regular rate and rhythm without murmur. Lungs: Clear. No increased work of breathing, crackles or wheezes. Abdomen: Soft, nontender to palpation. Extremities: Well perfused, pulses intact. No significant edema. Neurologic: He is alert, he will answer questions briefly with one-word answers. Moves all extremities. Face is symmetric. Skin: Warm, dry well perfused. Affect: Anxious. Const: Vital Signs, click to edit/add: Vital Signs - 24 hr 10/01/24 19:31 10/01/24 20:12 10/01/24 20:15 Temperature 99.0 F Pulse Rate 89 79 Respiratory Rate 22 Blood Pressure [Ri ght Upper Arm] 108/80 Pulse Oximetry 99 97 95 Oxygen Delivery Me thod Room Air 10/01/24 20:30 10/01/24 20:45 10/01/24 21:00 Temperature Pulse Rate 81 69 75 Respiratory Rate Blood Pressure [Ri ght Upper Arm] Pulse Oximetry 95 96 97 Oxygen Delivery Me thod Documenting provider has reviewed patient's vital signs: yes Course Course ED Course: Patient presents with somewhat nonspecific symptoms, possibly viral, less likely to be food poisoning in the absence of vomiting or diarrhea. I do think there is an overlay of anxiety/panic to this. I ordered some labs. I gave him Zofran orally as well as 1 mg of Ativan. He has not had any vomiting. CBC shows a normal white blood cell count, hemoglobin of 15.8 platelets are slightly low at 104,000 four thousand. We metabolic panel is unremarkable. Lactate is 0.7. LFTs are normal. CRP is 1.0. TSH here is normal at 2.5. Viral swab is positive for COVID. Discussed with him I think he has likely been feeling poorly over the past couple of days secondary to a COVID infection. He does feel improved after medications here. I am going to send him home with some Zofran if needed at home. Motrin or Tylenol if needed. Return for worsening. See primary care if not improving over the next week. Vital Signs Vital signs: Initial Vital Signs Temperature 99.0 F 10/01/24 19:31 Temperature Source Temporal Artery Scan 10/01/24 19:31 Respiratory Rate 22 10/01/24 19:31 Blood Pressure 108/80 10/01/24 19:31 Blood Pressure Mean 89 10/01/24 19:31 Blood Pressure Position Sitting 10/01/24 19:31 Pulse Oximetry 99 10/01/24 19:31 Oxygen Delivery Method Room Air 10/01/24 19:31 Vital Signs Temperature 99.0 F 10/01/24 19:31 Respiratory Rate 22 10/01/24 19:31 Blood Pressure 108/80 10/01/24 19:31 Pulse Oximetry 99 10/01/24 19:31 Oxygen Delivery Method Room Air 10/01/24 19:31 Temperature 99.0 F 10/01/24 19:31 Pulse Rate 75 10/01/24 21:00 Respiratory Rate 22 10/01/24 19:31 Blood Pressure 108/80 10/01/24 19:31 Pulse Oximetry 97 10/01/24 21:00 Oxygen Delivery Method Room Air 10/01/24 19:31 Medications Administered Medications: Discontinued Medications Generic Name Dose Route Start Last Admin Trade Name Jovonq PRN Reason Stop Dose Admin Lorazepam 1 mg 10/01/24 19:43 10/01/24 20:10 Lorazepam 1 Mg Tablet PO 10/01/24 19:44 1 mg ONCE ONE Administration Ondansetron HCl 4 mg 10/01/24 19:43 10/01/24 20:10 Ondansetron Odt 4 Mg Tab PO 10/01/24 19:44 4 mg ONCE ONE Administration Medical Decision Making Lab Data Labs: Lab Results 10/01/24 10/01/24 Range/Units 19:38 20:16 WBC 9.13 (4.50-11.00) K/uL RBC 5.45 (4.30-5.90) m/uL Hgb 15.8 (13.5-17.5) gm/dL Hct 47.5 (37.0-53.0) % MCV 87 (80-100) fL MCH 29 (26-34) pg MCHC 33 (32-36) gm/dL RDW Coeff of Vasquez 13.9 (11.5-15.5) % Plt Count 104 L (140-440) K/uL Neut % (Auto) 82.2 H (42.0-72.0) % Lymph % (Auto) 3.5 L (20-44) % [place] % (Auto) 12.4 H (0.0-11.0) % Eos % (Auto) 1.3 (0.0-7.0) % Baso % (Auto) 0.3 (0.0-3.0) % Neut # (Auto) 7.50 H (1.7-7.0) K/uL Lymph # (Auto) 0.30 L (0.90-2.90) K/uL [place] # (Auto) 1.10 H (0.00-0.90) K/UL Eos # (Auto) 0.12 (0.00-0.50) K/uL Baso # (Auto) 0.03 (0.00-0.30) K/uL Abs Immat Gran (auto) 0.03 (0.00-0.30) K/uL Imm/Tot Granulo (auto) 0.3 % Diff Slide Review Acceptable Review (Acceptable) Sodium 137 (135-149) mmol/L Potassium 3.5 L (3.6-5.1) mmol/L Chloride 103 (96-114) mmol/L Carbon Dioxide 23 (20-32) mmol/L Anion Gap 11 (7-15) mEq/L BUN 13 (5-24) mg/dL Creatinine 1.1 (0.5-1.5) mg/dL Estimated Creat Clear 90.14 Estimated GFR 91 ml/min Glucose 102 (60-115) mg/dL Lactate 0.7 (0.5-1.9) mmol/L Calcium 9.5 (8.4-10.6) mg/dL Total Bilirubin 0.6 (0.1-1.5) mg/dL Direct Bilirubin 0.2 (0.0-0.5) mg/dL AST 35 (12-35) U/L ALT 33 (4-50) U/L Alkaline Phosphatase 63 (40-150) U/L C-Reactive Protein 1.0 (0.5-1.0) mg/dL Total Protein 7.1 (6.0-8.3) g/dL Albumin 4.6 (3.3-5.0) g/dL TSH 2.510 (0.270-4.200) uIU/mL SARS-CoV-2 (PCR) POSITIVE SARS-CoV-2 A (Negative) Influenza Type A (PCR) Negative PCR FLU A (Negative) Influenza Type B (PCR) Negative PCR FLU B (Negative) RSV (PCR) Negative PCR RSV (Negative) Discharge Plan Discharge Clinical Impression: COVID-19 Patient Disposition: Home, Self-Care Condition: Improved Instructions: COVID-19 (Coronavirus Disease 2019) (ED) Additional Instructions: You are most likely feeling poorly over the past few days because of COVID. Your other tests are reassuring. I doubt this is food poisoning based on your symptoms and positive COVID test. Regardless, you can use nausea medicine at home if needed. Ibuprofen and Tylenol may be helpful for aches and pains. If you are not improving over the next week, see her primary doctor. Return to the ER at any time for acute worsening symptoms. Prescriptions: No Action levothyroxine 150 mcg tablet prednisolone acetate 1 % drops,suspension 1 drp ophthalmic (eye) QID Qty: 10 0RF Rx Instructions: Place one drop 3-4x daily in both eyes for 5-7 days. Follow Up/Referrals: Provider,Not a Local [Non-Staff] - Stand Alone Forms: [employer] Info Instructions
[2024-10-01] MEDS: ONDANSETRON ODT 4 MG TAB PO (20:10)
[2024-10-01] MEDS: LORazepam 1 MG TABLET PO (20:10)
[2024-10-01 20:12] VITALS: PULSE 89; O2SAT 97
[2024-10-01 20:15] VITALS: PULSE 79; O2SAT 95
--- OUTSIDE RECORDS SUMMARY | 2024-10-01 20:20 | XMS_ITS | Clinical Summary ---
Author Organization [facility] Address [place], [place] [address] Care Team Providers Care Automatic Clipper Name Role Phone Radha Briggs DO Primary Care Provider [phone] Allergies Active Allergy Reactions Criticality Noted Date [...] Department Care Team Description 09/29/2024 3:45 PM PROPERTY MASTER Office Visit [facility] [address] [place] [address] Radha Briggs DO Medication Management (Levothyroxine ) [...] on file Legal Sex Male 5:26 AM PROPERTY MASTER Gender Identity Not on file Sexual Orientation Not on file Obstetrics History Last Filed Vital Signs Vital Sign Reading Time Taken Comments Blood Pressure 131/76 09/29/2024 3:40 PM PROPERTY MASTER Pulse 62 09/29/2024 3:40 PM PROPERTY MASTER Temperature 36.7 C (98.1 F) 02/02/2020 2:34 PM CDT Respiratory Rate 20 12/15/2020 1:56 PM CDT Oxygen Saturation 100% 09/29/2024 3:40 PM PROPERTY MASTER Inhaled Oxygen Concentration - - Weight 81.7 kg (180 lb 1.6 oz) 09/29/2024 3:40 P M PROPERTY MASTER Height 185.4 cm (6' 1) 10/29/2023 2:29 PM PROPERTY MASTER Body Mass Index 23.76 10/29/2023 2:29 PM PROPERTY MASTER Plan of Treatment Upcoming Encounters Date Type Department Care Team (Late st Contact Info) Description 12/29/2024 3:45 PM CDT Orders Only [facility] [address] [facility] [place] [id number] Lab, [place] [facility] Maintenance Due Date Last [...] WITH AUTO DIFFERENTIAL Routine 09/29/2024 3:52 PM PROPERTY MASTER Hypothyroidism following radioiodine therapy TSH Routine 09/29/2024 3:52 PM PROPERTY MASTER Hypothyroidism following radioiodine therapy BASIC METABOLIC PANEL Routine 09/29/2024 3:52 PM PROPERTY MASTER Hypothyroidism following radioiodine therapy ANTI HIV 1/2 Routine 10/29/2023 2:50 PM PROPERTY MASTER Screening for HIV (human immunodeficiency virus) ANTI HCV Routine 10/29/2023 2:50 PM PROPERTY MASTER Need for hepatitis C screening test from Last 3 Months or Most Recently Relevant to Health Maintenance Results * (ABNORMAL) TSH (09/29/2024 3:52 PM PROPERTY MASTER) TSH 8.07(H) 0.40 - 4.50 mIU/L [facility] Blood BLOOD SPECIMEN / Unknown 09/29/2024 3:52 PM PROPERTY MASTER 09/29/2024 3:53 PM PROPERTY MASTER us Adei Shaqra DO CHEMISTRY Final Result [facility] [address] [place] [address], [facility] [address] [place] [address] * CBC AND DIFFERENTIAL (09/29/2024 3:52 PM PROPERTY MASTER) Pathologist [facility] WHITE BLOOD CELL COUNT 6.9 3.8 - 10.8 Thousand/u L [facility] RED BLOOD CELL COUNT 5.23 4.20 - 5.80 Million/uL [facility] HEMOGLOBIN 15.6 13.2 - 17.1 g/dL [facility] HEMATOCRIT 46.6 38.5 - 50.0 % [facility] MCV 89.1 80.0 - 100.0 fL [facility] MCH 29.8 27.0 - [...] COUNT 277 140 - 400 Thousand/u L [facility] MPV 10.6 7.5 - [...] BLOOD SPECIMEN / Unknown 09/29/2024 3:52 PM PROPERTY MASTER 09/29/2024 3:53 PM PROPERTY MASTER us Adei Bobyqra DO HEMATOLOGY Final Result Performing Organization Address [facility]/ZIP Co de Phone Number [facility] [address] [place] [address], [place] [phone] [facility] [address] [place] [address] * BASIC METABOLIC PANEL (09/29/2024 3:52 PM PROPERTY MASTER) [facility] GLUCOSE 95 65 - 99 mg/dL [...] BLOOD SPECIMEN / Unknown 09/29/2024 3:52 PM PROPERTY MASTER 09/29/2024 3:53 PM PROPERTY MASTER us Adei Shaqra DO CHEMISTRY Final Result Performing Organization Address [facility]/ZIP Co de Phone Number [facility] [address] [place] [address], [place] [phone] [facility] [address] [place] [address] * ANTI HCV (10/29/2023 2:50 PM PROPERTY MASTER) [facility] HEPATITIS C ANTIBODY Non-Reacti ve Non-React jayson 10/29/2023 10:46 PM PROPERTY MASTER [facility] Comment:Please note, per www .CDC.gov: If a patient is known to be at high risk of HCV infection, or is symptomatic, and the physician's suspicion of HCV infection is high, HCV RNA testing is often employed and is of diagnostic value, even after an initial negative anti-HCV test result. Blood BLOOD SPECIMEN / Unknown Venipuncture / Unknown 10/29/2023 2:50 PM PROPERTY MASTER 10/29/2023 2:50 PM PROPERTY MASTER [employer] DO SEND OUTS Final Result Performing Organization Address [facility]/ZIP Co de Phone Number [facility] [address] [place] [address], * ANTI HIV 1/2 [68870.0] (10/29/2023 2:50 PM PROPERTY MASTER) [facility] HIV-1/HIV-2 SCREEN Non-Reacti ve Non-Reacti ve 10/29/2023 10:47 PM PROPERTY MASTER [facility] Comment:HIV-1 p24 and HIV-1/ HIV-2 Ab Not Detected. Blood BLOOD SPECIMEN / Unknown Venipuncture / Unknown 10/29/2023 2:50 PM PROPERTY MASTER 10/29/2023 2:50 PM PROPERTY MASTER [employer] DO SEND OUTS Final Result Performing Organization Address [facility]/ZIP Co de Phone Number [facility] [address] [place] [address], from Last 3 Months or Most Recently Relevant to Health Maintenance Insurance [employer] [facility] [place] Care Teams Automatic Clipper Relationship Specialty Start Date End Date Radha Briggs DO [address] [place] [address] PCP - General Family Practice 12/12/22
[2024-10-01 20:22] LABS: Lactate Sepsis w/Reflex* 0.7 mmol/L (0.5-1.9)
[2024-10-01 20:22] LABS: PCR FLU A Negative PCR FLU A (Negative); PCR FLU B Negative PCR FLU B (Negative); PCR RSV Negative PCR RSV (Negative); SARS PCR* POSITIVE SARS-CoV-2 (Negative)
[2024-10-01 20:30] VITALS: PULSE 81; O2SAT 95
[2024-10-01 20:32] LABS: Basophils Absolute Auto 0.03 K/uL (0.00-0.30); Basophils Percent Auto 0.3 % (0.0-3.0); Eosinophils Absolute Auto 0.12 K/uL (0.00-0.50); Eosinophils Percent Auto 1.3 % (0.0-7.0); Hematocrit 47.5 % (37.0-53.0); Hemoglobin* 15.8 gm/dL (13.5-17.5); Immature Granulocytes Abs Auto 0.03 K/uL (0.00-0.30); Immature Granulocytes Pct Auto 0.3 %; Lymphocytes Percent Auto 3.5 % (20-44); Mean Corpuscular HGB Conc 33 gm/dL (32-36); Mean Corpuscular Hemoglobin 29 pg (26-34); Mean Corpuscular Volume 87 fL (80-100); Monocytes Percent Auto 12.4 % (0.0-11.0); Neutrophils Percent Auto 82.2 % (42.0-72.0); Platelet Count* 104 K/uL (140-440); RDW Coefficient of Variation % 13.9 % (11.5-15.5); Red Blood Count 5.45 m/uL (4.30-5.90); White Blood Count* 9.13 K/uL (4.50-11.00)
[2024-10-01 20:42] LABS: Albumin* 4.6 g/dL (3.3-5.0); Chloride* 103 mmol/L (96-114); Sodium* 137 mmol/L (135-149)
[2024-10-01 20:43] LABS: Potassium* 3.5 mmol/L (3.6-5.1)
[2024-10-01 20:44] LABS: Creatinine* 1.1 mg/dL (0.5-1.5); Est. Creatinine Clearance* 90.14; Estimated Glomerular Filt Rate 91 ml/min
[2024-10-01 20:45] VITALS: PULSE 69; O2SAT 96
[2024-10-01 20:45] LABS: Alanine Aminotransferase* 33 U/L (4-50); Alkaline Phosphatase* 63 U/L (40-150); Anion Gap 11 mEq/L (7-15); Aspartate Amino Transferase* 35 U/L (12-35); Bilirubin Direct* 0.2 mg/dL (0.0-0.5); Bilirubin Total* 0.6 mg/dL (0.1-1.5); Blood Urea Nitrogen* 13 mg/dL (5-24); Carbon Dioxide* 23 mmol/L (20-32); Glucose* 102 mg/dL (60-115); Total Protein* 7.1 g/dL (6.0-8.3)
[2024-10-01 20:46] LABS: Calcium* 9.5 mg/dL (8.4-10.6)
[2024-10-01 21:00] VITALS: PULSE 75; O2SAT 97
[2024-10-01 21:09] LABS: Slide Review Reflex Yes
[2024-10-01 21:10] LABS: Slide Review Acceptable Review (Acceptable)
== END 2024-10-01 21:45 | disposition home or self-care (01) ==
PROVIDERS: Emergency Provider Emergency Medicine; PCP Student in an Organized Health Care Education/Training Program
DX: U07.1 COVID-19 (principal)
CPT/HCPCS: 36415; 80048; 80076; 83605; 84443; 85025; 86140; 87631; 99281; 99283; A9270